=== PATIENT | male | born 1995 | race Caucasian/White ===

== ENCOUNTER 2016-11-22 22:57 | Emergency (ER) | payer MEDICAID, OTHER ==
[~2016-11-22] VITALS: Ht 170.2 cm; Wt 76.5 kg
[~2016-11-22 22:57] MED LIST: CIPR500T4 PO
[2016-11-22 23:00] VITALS: Ht 170.2 cm; Wt 76.5 kg
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
--- NOTE | 2016-11-23 02:07 | RADRPT ---
PROCEDURE: CT of the abdomen and pelvis without contrast CLINICAL INDICATION: Abdominal Pain. TECHNIQUE: Spiral CT images through the abdomen and pelvis without the use of contrast. The admin istered radiation dose is CTDI 7.70 and DLP 457.32. One or more of the following dose reduction kendrick hniques were used: automated exposure control, adjustment of the mA and/or kV according to patient s ize, or use of iterative reconstruction technique. COMPARISON: None FINDINGS: Lack of oral and intravenous contrast somewhat limits evaluation. Slight dependent atelectasis of the lung bases is seen. No pleural effusion is seen. The liver, spleen, adrenals, kidneys, and pancreas are unremarkable in appearance. . There is no e vidence for bowel obstruction, free air, or abscess. The appendix is normal in appearance. there i s no evidence for diverticulitis. Moderate colonic stool burden. No adenopathy or ascites is seen. The bladder and prostate are unremarkable in appearance. No evidence for urolithiasis. New. IMPRESSION: No definite acute abnormality of the abdomen or pelvis. RPTAT: HLBE Physician Gertrude Date Time Electronically viewed and signed by Physician Gertrude on 11/23/2016 02:07 JAYNE/
--- NOTE | 2016-11-23 02:10 | RADRPT ---
PROCEDURE: Scrotal ultrasound CLINICAL INDICATION: Scrotal pain. TECHNIQUE: A scrotal ultrasound was performed utilizing hernández scale and Doppler imaging. COMPARISON: None. FINDINGS: The right testicle measures 4.1 x 2.2 x 2.6 cm. There is normal size and echogenicity and morphology of the right testicle with normal blood flow. The right epididymis measures 1.1 x 0.4 cm. Normal va scular flow is seen within the right epididymis. The left testicle measures 4.2 x 2.0 x 2.4 cm. There is normal size and echogenicity and morphology of the left testicle with normal blood flow. The left epididymis measures 1.0 x 0.6 cm. Normal vascu lar flow is seen within the left epididymis. No hydrocele or varicocele is identified. IMPRESSION: 1. Unremarkable scrotal ultrasound. RPTAT: HTAR .Pradeep Reveles MD, MD Date Time Electronically viewed and signed by .Pradeep Reveles MD, on 11/23/2016 02:10 .R/
[2016-11-23 02:45] LABS: BASOPHILS % 0.5 % (0.0-2.0); EOSINOPHILS # 0.1 10^3/ul (0.0-0.5); EOSINOPHILS % 1.3 % (0.0-7.0); HEMOGLOBIN 15.1 g/dl (14.0-18.0); LYMPHOCYTES # 3.2 10^3/ul (0.8-2.9); LYMPHOCYTES % 39.4 % (18.0-55.0); MEAN CORPUSCULAR HEMOGLOBIN 31.9 pg (29.0-33.0); MEAN CORPUSCULAR HGB CONC 34.3 g/dl (32.0-37.0); MEAN CORPUSCULAR VOLUME 93.1 fl (72.0-104.0); MEAN PLATELET VOLUME 8.8 fl (7.4-10.4); MONOCYTE # 0.6 10^3/ul (0.3-0.9); NEUTROPHIL # 4.1 10^3/ul (1.6-7.5); NEUTROPHILS % 50.8 % (30.0-74.0); PLATELET COUNT 208 10^3/UL (140-440); RED BLOOD COUNT 4.73 10^6/ul (4.70-6.10); RED CELL DISTRIBUTION WIDTH 13.6 % (11.5-14.5); UNCORRECTED WBC 8.1 10^3/ul (4.8-10.8); WHITE BLOOD COUNT 8.1 10^3/ul (4.8-10.8)
[2016-11-23 02:46] LABS: CONDITION 1
[2016-11-23 02:58] LABS: ALBUMIN 3.5 g/dl (3.3-4.9); POTASSIUM 3.9 mmol/L (3.5-5.1)
[2016-11-23 03:00] LABS: CREATININE 0.87 mg/dl (0.61-1.24)
[2016-11-23 03:01] LABS: ALBUMIN/GLOBULIN RATIO 1.52; BILIRUBIN,INDIRECT 0.5 mg/dl (0-1.1); BILIRUBIN,TOTAL 0.5 mg/dl (0.2-1.3); CALCIUM 8.4 mg/dl (8.4-10.2); TOTAL PROTEIN 5.8 g/dl (6.1-8.1)
[2016-11-23 03:09] LABS: ADD UMIC NO; URINE BILIRUBIN (Dip) NEGATIVE (NEGATIVE); URINE BLOOD (Dip) NEGATIVE (NEGATIVE); URINE COLOR LT. YELLOW (YELLOW); URINE GLUCOSE (Dip) NEGATIVE (NEGATIVE); URINE KETONES (Dip) NEGATIVE (NEGATIVE); URINE LEUKOCYTE ESTERASE (Dip) NEGATIVE (NEGATIVE); URINE NITRITE (Dip) NEGATIVE (NEGATIVE); URINE TOTAL PROTEIN (Dip) NEGATIVE (NEGATIVE); URINE UROBILINOGEN (Dip) 0.2 E.U./dL (0.1-1.0)
[2016-11-23] MEDS ORDERED: TRAM50TA2 PO (03:16)
[2016-11-23] MEDS ORDERED: IBUP-1542 PO (03:16)
[2016-11-23 03:34] VITALS: BP 126/58; PULSE 63; RESP 16; TEMP 97.6
== END 2016-11-23 03:34 | disposition home or self-care (01) ==
LOC: FTE 22:57
DX: R10.30 Lower abdominal pain, unspecified (principal); N50.82 Scrotal pain
CPT/HCPCS: 36415; 74176; 76870; 80053; 81003; 83690; 85025; 87591; Z7502

== ENCOUNTER 2017-04-22 14:16 | Emergency (ER) | payer OTHER ==
[~2017-04-22] VITALS: Ht 177.8 cm; Wt 78.5 kg
[~2017-04-22 14:16] MED LIST changes: +IBUP-1542 PO; +TRAM50TA2 PO
[2017-04-22 14:37] VITALS: Ht 177.8 cm; Wt 78.5 kg
[2017-04-22] MEDS ORDERED: IBUPROFEN 600 MG TAB PO ONE (15:00)
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
--- NOTE | 2017-04-22 15:32 | RADRPT ---
PROCEDURE: XR left Ankle. CLINICAL INDICATION: Ankle pain TECHNIQUE: Three views of the left ankle were performed. COMPARISON: None. FINDINGS: There is no acute fracture or dislocation. The ankle mortise is intact. There is no significant lurdes int effusion. The soft tissues are unremarkable. RPTAT: EE IMPRESSION: No acute bony abnormality. .Yulisa Maradiaga MD, MD Date Time Electronically viewed and signed by .Yulisa Maradiaga MD, on 04/22/2017 15:36 .T/
--- NOTE | 2017-04-22 15:33 | RADRPT ---
PROCEDURE: XR Left foot. CLINICAL INDICATION: Foot pain from trauma TECHNIQUE: Three views of the left foot were obtained. COMPARISON: No prior studies are available for comparison. FINDINGS: There is no acute fracture or dislocation. The metatarsals are in alignment with the cuneiforms. T he joint spaces are maintained. The soft tissues are unremarkable.. RPTAT: EE IMPRESSION: No acute bony abnormality. .Yulisa Maradiaga MD, MD Date Time Electronically viewed and signed by .Yulisa Maradiaga MD, on 04/22/2017 15:37 .T/
[2017-04-22] MEDS ORDERED: NAPR-260 PO (15:51)
== END 2017-04-22 16:06 | disposition home or self-care (01) ==
LOC: FTE 14:16
DX: M25.572 Pain in left ankle and joints of left foot (principal)
CPT/HCPCS: 73610; 73630; Z7610

== ENCOUNTER 2018-06-07 18:48 | Emergency (ER) | END 2018-06-07 22:10 | disposition home or self-care (01) ==

== ENCOUNTER 2019-01-07 04:23 | Emergency (ER) | payer OTHER ==
[~2019-01-07] VITALS: Ht 177.8 cm; Wt 78.3 kg
[~2019-01-07 04:23] MED LIST changes: +NAPR-985 PO; +ONDA4TAB13 PO
[2019-01-07 04:30] VITALS: BP 143/82; PULSE 82; RESP 16; Ht 177.8 cm; Wt 78.3 kg
--- NOTE | 2019-01-07 04:54 | ERD ---
ER Documentation Chief Complaint Chief Complaint ST, and earaches x 2 days HPI 23-year-old male, previously healthy, presents the emergency department, complaining of 2 days with worsening of sore throat, associated with a headache, fever and general malaise. The patient also refers bilateral ear pain. ROS All systems reviewed and are negative except as per history of present illness. Medications Home Meds Active Scripts Ondansetron Hcl* (Zofran*) 4 Mg Tab, 4 MG PO Q4H PRN for NAUSEA AND OR VOMITING, #15 TAB Prov:TAHIRA RAMIREZ 06/07/18 Naproxen* (Naprosyn*) 500 Mg Tablet, 500 MG PO BID PRN for PAIN AND/OR INFLAMM ATION, #30 TAB Prov:MELANIE QUIÑONES PA-C 04/22/17 Tramadol HCl (Tramadol HCl) 50 Mg Tablet, 50 MG PO Q6 PRN for PAIN, #20 TAB Prov:MARCO PATTERSON NP 11/23/16 Ibuprofen* (Motrin*) 600 Mg Tab, 600 MG PO Q6H PRN for PAIN AND OR ELEVATED TEMP, #30 TAB Prov:MARCO PATTERSON ULTRASONIC TESTER 11/23/16 Ciprofloxacin Hcl* (Ciprofloxacin Hcl*) 500 Mg Tablet, 500 MG PO BID for 7 Days, TAB Prov:MARQUITA AYOUB PA-C 10/03/15 Allergies Allergies: Coded Allergies: No Known Allergy (Unverified , 06/07/18) PMhx/Soc Medical and Surgical Hx: pt denies Medical Hx, pt denies Surgical Hx History of Surgery: No Anesthesia Reaction: No Hx Neurological Disorder: No Hx Respiratory Disorders: No Hx Cardiac Disorders: No Hx Psychiatric Problems: No Hx Miscellaneous Medical Probl: No Hx Alcohol Use: No Hx Substance Use: No Hx Tobacco Use: No Smoking Status: Never smoker FmHx Family History: No diabetes, No coronary disease Physical Exam Vitals Vital Signs Date Temp Pulse Resp B/P (MAP) Pulse Ox O2 O2 Flow FiO2 Time Delivery Rate 01/07/19 98.1 82 16 143/82 98 04:30 (102) Physical Exam Patient alert, hydrated. EYES: PERRLA, EOMI, injected sclerae EARS: Canals clear, erythematous tympanic membranes THROAT: Erythematous oropharynx with bilateral exudates NECK: Supple, + tender cervical lymphadenopathy. Full ROM without pain or tenderness. HEART: RRR, no rubs, murmurs, clicks or gallops. LUNGS: Clear to auscultation. ABDOMEN: Soft, non-tender without masses or hepatosplenomegaly. EXTREMITIES: No edema bilaterally. BACK: Full ROM, no deformity, normal back exam NEURO: Cranial nerves grossly intact, no motor or sensory deficit Procedures/MDM Differential diagnosis include but not limited to: Tonsillar/pharyngeal infection bacterial/viral/fungal, parotitis, allergies, GERD. Less likely peritonsillar abscess, retropharyngeal abscess. No signs of upper respiratory obstruction Physical examination and clinical presentation consistent most likely with acute suppurative tonsillitis. During the ED course the patient remained stable. Clinical impression discussed with the patient who agrees with management. The patient is stable to be treated outpatient and will be discharged home with a Rx for antibiotic and ibuprofen. Some side effects of prescribed medications (headache, rash, nausea, vomiting, diarrhea, drowsiness, habituation, bleeding, hypertension, interactions with other medications) were reviewed. The patient was instructed to follow up with the primary care provider in the next 48h. If symptoms persist, worsen or new symptoms develop, then patient should return to the ED immediately. Disclaimer: Inadvertent spelling and grammatical errors are likely due to EHR/dictation software use and do not reflect on the overall quality of patient care. Also, please note that the electronic time recorded on this note does not necessarily reflect the actual time of the patient encounter. Departure Diagnosis: Primary Impression: Acute suppurative tonsillitis Condition: Stable Additional Instructions: Thank you very much for allowing us to participate in your care. Your health and safety is our top priority at [facility]. Call your primary care doctor TOMORROW for an appointment during the next 2-4 days and bring all the information and medications prescribed. Have prescriptions filled and follow precisely the directions on the label. If the symptoms get worse and your provider is unavailable, return to the Emergency Department immediately. EMELYN MATHEWS MD Jan 07, 2019 04:54
[2019-01-07] MEDS ORDERED: AZIT250T PO (04:56)
[2019-01-07] MEDS ORDERED: ACET325T33 PO (04:56)
[2019-01-07] MEDS ORDERED: IBUP-1542 PO (04:56)
== END 2019-01-07 05:35 | disposition home or self-care (01) ==
LOC: FTE 04:23
DX: J03.90 Acute tonsillitis, unspecified (principal)
CPT/HCPCS: 99283